=== PATIENT | female | born 2000 | race American Indian/Alaskan Native ===

== ENCOUNTER 2018-07-01 03:55 | Emergency (ER) | payer OTHER ==
[2018-07-01 04:03] VITALS: BP 122/57
[2018-07-01 04:27] LABS: Basophils % (Auto) 0.5 % (0.0-1.8); Eosinophils # (Auto) 0.1 K/mm3 (0.0-0.4); Eosinophils % (Auto) 0.8 % (0.0-4.3); Hematocrit 36.1 % (30.3-42.9); Hemoglobin 12.3 gm/dl (10.1-14.3); Lymphocytes # (Auto) 1.8 K/mm3 (1.2-5.4); Lymphocytes % (Auto) 20.4 % (13.4-35.0); Mean Corpuscular HGB Conc 34 % (30-34); Mean Corpuscular Volume 91 fl (79-97); Monocytes # (Auto) 0.6 K/mm3 (0.0-0.8); Monocytes % (Auto) 6.9 % (0.0-7.3); Platelet Count 259 K/mm3 (140-440); Red Blood Count 3.96 M/mm3 (3.65-5.03); Red Cell Distribution Width 13.2 % (13.2-15.2)
== END 2018-07-01 07:00 | disposition left against medical advice (07) ==
LOC: ED 03:55
DX: O20.8 Other hemorrhage in early pregnancy (principal); Z53.21 Procedure and treatment not carried out due to patient leaving prior to being seen by health care provider
CPT/HCPCS: 36415; 84702; 85025; 86900; 86901

== ENCOUNTER 2019-02-09 11:31 | Emergency (ER) | payer SELFPAY ==
[2019-02-09] MEDS ORDERED: ONDANSETRON 4 MG ODT TAB PO ONE (11:47)
--- NOTE | 2019-02-09 11:49 | Event Note ---
ED Screening Note Date of service: 02/09/19 Time: 11:45 ED Screening Note: This is a 18 y.o. F. that presents to the ER with n/v/d, chills, and abdominal pain x 3 days. Patient mom reports patient was drinking ETOH night. This initial assessment/diagnostic orders/clinical plan/treatment(s) is/are subject to change based on patients health status, clinical progression and re- assessment by fellow clinical providers in the ED. Further treatment and workup at subsequent clinical providers discretion. Patient/guardian urged not to elope from the ED as their condition may be serious if not clinically assessed and managed. Initial orders include: Labs
[2019-02-09 12:17] LABS: Basophils % (Auto) 0.2 % (0.0-1.8); Eosinophils % (Auto) 0.3 % (0.0-4.3); Hematocrit 42.5 % (30.3-42.9); Hemoglobin 14.3 gm/dl (10.1-14.3); Lymphocytes # (Auto) 0.7 K/mm3 (1.2-5.4); Lymphocytes % (Auto) 12.6 % (13.4-35.0); Mean Corpuscular HGB Conc 34 % (30-34); Mean Corpuscular Volume 92 fl (79-97); Monocytes # (Auto) 0.4 K/mm3 (0.0-0.8); Monocytes % (Auto) 6.9 % (0.0-7.3); Platelet Count 276 K/mm3 (140-440); Red Blood Count 4.63 M/mm3 (3.65-5.03); Red Cell Distribution Width 14.7 % (13.2-15.2)
[2019-02-09 12:31] LABS: Alanine Aminotransferase 15 units/L (7-56); Albumin 4.8 g/dL (3.9-5); BUN/Creatinine Ratio 22; Blood Urea Nitrogen 11 mg/dL (7-17); Calcium 9.6 mg/dL (8.4-10.2); Hemolysis Index 31
[2019-02-09] MEDS ORDERED: ONDANSETRON 4 MG/2 ML INJ IV ONE (14:00)
[2019-02-09] MEDS ORDERED: SODIUM CHLORIDE 0.9% 1000 ML 1,000 ML IV ONE (14:00)
[2019-02-09] MEDS ORDERED: DICYCLOMINE 20 MG TAB PO ONE (14:02)
--- NOTE | 2019-02-09 14:04 | Emergency Department Report ---
ED N/V/D HPI - General Chief complaint: Nausea/Vomiting/Diarrhea Stated complaint: VOMITING/DIARRHEA/ABD PX Time Seen by Provider: 02/09/19 11:45 Source: patient Mode of arrival: Ambulatory Limitations: No Limitations - History of Present Illness Initial comments: This is a 18-year-old female nontoxic, well nourished in appearance, no acute signs of distress presents to the ED with c/o of nausea and vomiting 3 days. Patient stated had some mild abdominal cramping 3 days ago but resolved by today. Patient describes vomiting as food content. Patient denies any abdominal pain, chest pain, short of breath, fever, chills, headache, stiff neck, numbness or tingling. Patient denies any diarrhea or constipation. Patient denies any recent travels. Patient denies any drug allergies significant past medical history. MD complaint: nausea, vomiting -: days(s) (3) Associated Abdominal Pain: No Radiation: none Pain Scale: 0 Improves with: none Worsens with: none Associated Symptoms: nausea/vomiting. denies: myalgias, chest pain, cough, diaphoresis, fever/chills, headaches, loss of appetite, malaise, rash, dysuria, shortness of breath, syncope, weakness - Related Data Previous Rx's Medication Instructions Recorded Last Taken Type Ondansetron [Zofran Odt] 4 mg PO Q8HR PRN #20 tab.forrestdis 02/09/19 Unknown Rx Allergies Allergy/AdvReac Type Severity Reaction Status Date / Time No Known Allergies Allergy Verified 02/09/19 11:32 ED Review of Systems ROS: Stated complaint: VOMITING/DIARRHEA/ABD PX Other details as noted in HPI Constitutional: denies: chills, fever Eyes: denies: eye pain, eye discharge, vision change ENT: denies: ear pain, throat pain Respiratory: denies: cough, shortness of breath, wheezing Cardiovascular: denies: chest pain, palpitations Endocrine: no symptoms reported Gastrointestinal: nausea, vomiting. denies: abdominal pain, diarrhea, constipation Genitourinary: denies: urgency, dysuria, discharge Musculoskeletal: denies: back pain, joint swelling, arthralgia Skin: denies: rash, lesions Neurological: denies: headache, weakness, paresthesias Psychiatric: denies: anxiety, depression Hematological/Lymphatic: denies: easy bleeding, easy bruising ED Past Medical Hx - Past Medical History Previous Medical History?: No - Surgical History Past Surgical History?: No - Social History Smoking Status: Never Smoker Substance Use Type: Alcohol - Medications Home Medications: Home Medications Medication Instructions Recorded Confirmed Last Taken Type Ondansetron [Zofran Odt] 4 mg PO Q8HR PRN #20 tab.rapdis 02/09/19 Unknown Rx ED Physical Exam - General Limitations: No Limitations General appearance: alert, in no apparent distress - Head Head exam: Present: atraumatic, normocephalic - Neck Neck exam: Present: normal inspection, full ROM. Absent: tenderness, meningi smus, lymphadenopathy - Respiratory Respiratory exam: Present: normal lung sounds bilaterally. Absent: respiratory distress, wheezes, rales, rhonchi, stridor, chest wall tenderness, accessory muscle use, decreased breath sounds, prolonged expiratory - Cardiovascular Cardiovascular Exam: Present: regular rate, normal rhythm, normal heart sounds. Absent: bradycardia, tachycardia, irregular rhythm, systolic murmur, diastolic murmur, rubs, gallop - GI/Abdominal GI/Abdominal exam: Present: soft, normal bowel sounds. Absent: distended, tenderness, guarding, rebound, rigid, diminished bowel sounds - Extremities Exam Extremities exam: Present: normal inspection, full ROM - Back Exam Back exam: Present: normal inspection, full ROM. Absent: tenderness, CVA tenderness (R), CVA tenderness (L), muscle spasm, paraspinal tenderness, vertebral tenderness, rash noted - Neurological Exam Neurological exam: Present: alert, oriented X3, normal gait - Psychiatric Psychiatric exam: Present: normal affect, normal mood - Skin Skin exam: Present: warm, dry, intact, normal color. Absent: rash ED Course Vital Signs 02/09/19 11:45 Temperature 97.6 F Pulse Rate 63 Respiratory 20 Rate Blood Pressure 123/87 O2 Sat by Pulse 99 Oximetry - Reevaluation(s) Reevaluation #1: 02/09/19 14:04 Patient is speaking in full sentences with no signs of distress noted. ED Medical Decision Making - Lab Data Result diagrams: 02/09/19 11:56 02/09/19 11:56 - Medical Decision Making This is a 18-year-old female that presents with nausea and vomiting. Patient is stable and was examined by me. There is no abdominal tenderness. Negative signs of symptoms of appendicitis, cholecystitis or acute abdomen. Labs obtained. UA obtained. Xr abdomen/chest xray obtained and dictated by the radiologist. Patient is notified of the report with no questions noted by the patient. Vital signs are stable prior to discharge. Patient received Zofran and 1L Normal saline in the ED which patient stated symptoms has resovled and subsided. A by mouth challenge has been obtained and patient tolerated well with no nausea vomiting. Patient was also instructed to Follow-up with a primary care doctor in 3-5 days or if symptoms worsen and continue return to emergency room as soon as possible. At time of discharge, the patient does not seem toxic or ill in appearance. No acute signs of distress noted. Patient agrees to discharge treatment plan of care. No further questions noted by the patient. Critical care attestation.: If time is entered above; I have spent that time in minutes in the direct care of this critically ill patient, excluding procedure time. ED Disposition Clinical Impression: Nausea & vomiting Qualifiers: Vomiting type: unspecified Vomiting Intractability: non-intractable Qualified Code(s): R11.2 - Nausea with vomiting, unspecified Disposition: DC-01 TO HOME OR SELFCARE Is pt being admited?: No Does the pt Need Aspirin: No Condition: Stable Instructions: Acute Nausea and Vomiting (ED) Additional Instructions: Follow-up with a primary care doctor in 3-5 days or if symptoms worsen and continue return to emergency room as soon as possible. Prescriptions: Ondansetron [Zofran Odt] 4 mg PO Q8HR PRN #20 tab.rapdis PRN Reason: Nausea Referrals: PRIMARY MD LUIS ANTONIO [Primary Care Provider] - 3-5 Days BLANE ESCALANTE MD [Staff Physician] - 3-5 Days [facility] [Outside] - 3-5 Days Forms: Work/School Release Form(ED)
--- NOTE | 2019-02-09 15:12 | XRay Report ---
ACUTE ABDOMINAL SERIES, 3 VIEWS INDICATION / CLINICAL INFORMATION: n/v. COMPARISON: None available. FINDINGS: Accompanying PA view of the chest is unremarkable. Heart size and pulmonary vascularity are normal. B oth lungs are well-expanded and are clear. Supine and erect views of the abdomen demonstrate mild amount of stool throughout the colon. No evide nce for fecal impaction. Bowel gas pattern is normal. No free air. IMPRESSION: No acute finding in the abdomen or chest. Signer Name: Uzma Kulkarni MD Signed: 02/09/2019 3:08 PM Workstation Name: [id number]
[2019-02-09 15:13] LABS: Bacteria,Urine 1+ /HPF (Negative); Bilirubin,Urine NEG (Negative); Blood,Urine NEG (Negative); Color,Urine Amber (Yellow); Mucus,Urine 3+ /HPF
[2019-02-09] MEDS ORDERED: POTASSIUM CHLORIDE ER 20 MEQ TAB PO ONE (15:38)
[2019-02-09 16:18] VITALS: BP 92/52
== END 2019-02-09 16:27 | disposition home or self-care (01) ==
LOC: ED 11:31
DX: R11.2 Nausea with vomiting, unspecified (principal)
CPT/HCPCS: 36415; 74022; 80053; 81001; 83690; 84703; 85025; 87086; 96374; 99284; J2405; J7030; Q0162